=== PATIENT | male | born 1990 ===

== ENCOUNTER 2018-01-18 14:33 | Inpatient (IN) | payer OTHER ==
[2018-01-18] MEDS ORDERED: Sodium Chloride 0.9% 1,000 ML IV SCH (15:15)
[2018-01-18 15:45] LABS: BASO % 0.1 % (0.0-2.0); HEMOGLOBIN 15.1 g/dL (12.0-18.0); LYMPH # 0.5 K/uL (1.0-4.3); LYMPH % 3.4 % (20.0-40.0); MEAN CELL VOLUME 89.3 fl (80.0-94.0); MEAN CORPUSCULAR HEMOGLOBIN 31.6 pg (27.0-31.0); MEAN CORPUSCULAR HGB CONC 35.4 g/dL (33.0-37.0); MEAN PLATELET VOLUME 7.4 fl (7.2-11.7); MONO # 0.5 K/uL (0.0-0.8); MONO % 3.4 % (0.0-10.0); NEUT # 14.5 K/uL (1.8-7.0); NEUT % 93.1 % (50.0-75.0); PLATELET COUNT 166 K/uL (130-400); RBC 4.78 Mil/uL (4.40-5.90); RED CELL DISTRIBUTION WIDTH 13.1 % (11.5-14.5); WHITE BLOOD COUNT 15.6 K/uL (4.8-10.8)
[2018-01-18] MEDS ORDERED: Iohexol 300 100 ML IJ ONE (16:11)
[2018-01-18] MEDS ORDERED: Sodium Chloride 0.9% 100 ML ONE (16:12)
[2018-01-18 16:15] LABS: SQUAMOUS EPITHIAL 1 /hpf (0-5); URINE BACTERIA RARE (<OCC); URINE BILIRUBIN NEGATIVE (NEGATIVE); URINE BLOOD NEGATIVE (NEGATIVE); URINE CLARITY SLIGHTY-CLOUDY (Clear); URINE COLOR YELLOW (YELLOW); URINE GLUCOSE (UA) NEG (Normal); URINE LEUKOCYTE ESTERASE NEG Leu/uL (Negative); URINE PROTEIN 100 mg/dL (NEGATIVE); URINE UROBILINOGEN 0.2-1.0 mg/dL (0.2-1.0)
[2018-01-18 16:23] LABS: ALB/GLOB RATIO 1.2 (1.0-2.1); ALT/SGPT 56 U/L (21-72); AST/SGOT 45 U/L (17-59); BILIRUBIN,DIRECT 0.3 mg/ml (0.0-0.4); BLOOD UREA NITROGEN 14 mg/dl (9-20); CALCIUM 8.8 mg/dL (8.4-10.2); GFR AFRICAN-AMERICAN > 60; GFR NON-AFRICAN AMERICAN > 60; LIPASE 29 U/L (23-300)
--- NOTE | 2018-01-18 16:56 | ED PDOC ---
HPI: Abdomen Time Seen by Provider: 01/18/18 14:55 Chief Complaint (Nursing): Abdominal Pain Chief Complaint (Provider): abdominal pain with diarrhea History Per: Patient, Family History/Exam Limitations: no limitations Onset/Duration Of Symptoms: Days (2) Outside of [place] travel?: No Past Medical History Vital Signs: Last Vital Signs Temp 99.2 F 01/18/18 19:48 Pulse 91 H 01/18/18 19:48 Resp 16 01/18/18 19:48 BP 100/45 L 01/18/18 19:48 Pulse Ox 100 01/18/18 19:48 - Family History Family History: States: No Known Family Hx - Home Medications Home Medications: Ambulatory Orders Medication Instructions Recorded No Known Home Med 01/18/18 - Allergies Allergies/Adverse Reactions: Allergies Allergy/AdvReac Type Severity Reaction Status Date / Time No Known Allergies Allergy Verified 01/18/18 14:38 Review of Systems ROS Statement: Except As Marked, All Systems Reviewed And Found Negative Gastrointestinal: Positive for: Nausea, Abdominal Pain, Diarrhea Physical Exam - Reviewed Nursing Documentation Reviewed: Yes Vital Signs Reviewed: Yes - Physical Exam Appears: Positive for: Well, Non-toxic, No Acute Distress Head Exam: Positive for: ATRAUMATIC, NORMAL INSPECTION, NORMOCEPHALIC Neck: Positive for: Normal, Painless ROM, Supple Cardiovascular/Chest: Positive for: Regular Rate, Rhythm, Chest Non Tender. Negative for: Edema, Gallop, Bradycardia, Tachycardia, Friction Rub Respiratory: Positive for: Normal Breath Sounds. Negative for: Accessory Muscle Use, Crackles, Rales, Rhonchi, Stridor, Wheezing, Respiratory Distress Pulses-Carotid (L): 2+ Pulses-Carotid (R): 2+ Pulses-Radial (L): 2+ Pulses-Radial (R): 2+ Gastrointestinal/Abdominal: Positive for: Bowel Sounds, Soft, Tenderness, Organomegaly (liver enlarged). Negative for: Mass, Distended, Guarding, Rebound , Asicites - Laboratory Results Result Diagrams: 01/18/18 15:39 01/18/18 15:39 - ECG O2 Sat by Pulse Oximetry: 98 Medical Decision Making Medical Decision Making: R/O infectious cause of diarhhea and abdominal pain PLAN: CT Abdomen and Pelvis CBC and CMP with lipase CT RESULTS: This CT exam was performed using one or more of the following dose reduction techniques: Automated exposure control, adjustment of the mA and/or kV according to patient size, and/or use of iterative reconstruction technique. FINDINGS: LOWER THORAX: Trace bilateral basilar dependent atelectasis identified. LIVER: Diminished attenuation throughout the liver indicates diffuse fatty infiltration. No focal mass or biliary tree dilatation appreciable. Liver appears upper limits normal size. GALLBLADDER AND BILE DUCTS: Gallbladder is mildly distended and otherwise appears unremarkable. PANCREAS: Unremarkable. No gross lesion or ductal dilatation. SPLEEN: Unremarkable. ADRENALS: Unremarkable. No mass. KIDNEYS AND URETERS: Tiny lucency seen the upper pole right kidney too small to characterize with the kidneys otherwise unremarkable bilaterally. VASCULATURE: Unremarkable. No aortic aneurysm. BOWEL: There is marked thickening of ascending colon which is less prominent but also affects the transverse and descending segments the sigmoid minimally affected. The rectum appears unaffected but is obscured by retained stool. Minimal local pericolic reaction is identified. Limited retained fluid and stool is seen in various large-bowel segments distal to the ascending colon. None is seen the ascending colon. Consider infectious or inflammatory causes of essentially pancolitis. No bowel obstruction is identified and the stomach is only minimally distended with retained fluid and air. APPENDIX: Normal appendix. PERITONEUM: Unremarkable. No free fluid. No free air. LYMPH NODES: Unremarkable. No enlarged lymph nodes. BLADDER: Unremarkable. REPRODUCTIVE: Unremarkable. BONES: A minimal anterior wedge compression fracture of T12 is in question, of indeterminate age. A small bone island is seen superior to the left acetabulum , left hip joint. OTHER FINDINGS: None. IMPRESSION: Findings most compatible with essentially pancolitis worst affected segment. Infectious and inflammatory causes should be considered and are favored based on the current CT more than ischemic etiologies. Neoplasm is not favored but is including the different diagnosis as well. No ascites. Only trace pericolic reaction is occasionally encountered related to these findings. Hepatic steatosis. Minimal T12 compression fracture questioned, of indeterminate age. ED decison to admit for IV abx and bowel rest made after dis Disposition - Clinical Impression Clinical Impression: Pancolitis, Nonalcoholic hepatosteatosis - Patient ED Disposition Is Patient to be Admitted: Yes Discussed With : Viraj Echeverria Comment: Admitted to FP - Disposition Disposition Time: 19:50 Condition: GOOD
[2018-01-18 18:00] LABS: BANDS 5 % (0-2); HYPOCHROMIC SLIGHT; LYMPHOCYTE 5 % (20-50); MONOCYTE 4 % (0-10); NEUTROPHIL 86 % (42-75); PLATELET ESTIMATE NORMAL (NORMAL); TOTAL CELLS COUNTED 100
--- NOTE | 2018-01-18 18:07 | CT ---
PROCEDURE: CT Abdomen and Pelvis with contrast HISTORY: r/o acute abdomen COMPARISON: None. TECHNIQUE: Contrast dose: Omnipaque 320, 95 cc Radiation dose: Total exam DLP = 651.76 mGy-cm. This CT exam was performed using one or more of the following dose reduction techniques: Automated exposure control, adjustment of the mA and/or kV according to patient size, and/or use of iterative reconstruction technique. FINDINGS: LOWER THORAX: Trace bilateral basilar dependent atelectasis identified. LIVER: Diminished attenuation throughout the liver indicates diffuse fatty infiltration. No focal mass or biliary tree dilatation appreciable. Liver appears upper limits normal size. GALLBLADDER AND BILE DUCTS: Gallbladder is mildly distended and otherwise appears unremarkable. PANCREAS: Unremarkable. No gross lesion or ductal dilatation. SPLEEN: Unremarkable. ADRENALS: Unremarkable. No mass. KIDNEYS AND URETERS: Tiny lucency seen the upper pole right kidney too small to characterize with the kidneys otherwise unremarkable bilaterally. VASCULATURE: Unremarkable. No aortic aneurysm. BOWEL: There is marked thickening of ascending colon which is less prominent but also affects the transverse and descending segments the sigmoid minimally affected. The rectum appears unaffected but is obscured by retained stool. Minimal local pericolic reaction is identified. Limited retained fluid and stool is seen in various large-bowel segments distal to the ascending colon. None is seen the ascending colon. Consider infectious or inflammatory causes of essentially pancolitis. No bowel obstruction is identified and the stomach is only minimally distended with retained fluid and air. APPENDIX: Normal appendix. PERITONEUM: Unremarkable. No free fluid. No free air. LYMPH NODES: Unremarkable. No enlarged lymph nodes. BLADDER: Unremarkable. REPRODUCTIVE: Unremarkable. BONES: A minimal anterior wedge compression fracture of T12 is in question, of indeterminate age. A small bone island is seen superior to the left acetabulum, left hip joint. OTHER FINDINGS: None. IMPRESSION: Findings most compatible with essentially pancolitis worst affected segment. Infectious and inflammatory causes should be considered and are favored based on the current CT more than ischemic etiologies. Neoplasm is not favored but is including the different diagnosis as well. No ascites. Only trace pericolic reaction is occasionally encountered related to these findings. Hepatic steatosis. Minimal T12 compression fracture questioned, of indeterminate age.
[2018-01-18] MEDS ORDERED: Ciprofloxacin 400mg/200ml D5W 400 MG/200 ML BAG IVPB STA (19:22)
[2018-01-18] MEDS ORDERED: METRONIDAZOLE 500 MG/100 ML IVPB SCH (19:30)
[2018-01-18] MEDS ORDERED: NS IVPB SCH (19:30)
[2018-01-18] MEDS ORDERED: Potassium Chloride 20 mEq ER Tab PO ONE ×2 (19:48→20:18)
[2018-01-18] MEDS ORDERED: Ciprofloxacin 400mg/200ml D5W 400 MG/200 ML BAG IVPB ONE (19:50)
[2018-01-18] MEDS: Lactated Ringer's 1,000 ML IV SCH (19:57)
--- NOTE | 2018-01-18 20:43 | CP.PCM.HP ---
History of Present Illness - History of Present Illness History of Present Illness: 27 year old male with no past medical history presented to ED with complaints of abdominal pain, diarrhea, body aches and subjective fevers that began last night. He had about 4 episodes of non-bloody liquid stools with associated abdominal cramping and pain, no nausea or vomiting. He has loss of appetite but has been drinking water. He denies chills or night sweats, did not take his temperature. He denies any sick contacts, no recent travel. He denies any URI symptoms, no rhinorrhea, headache/fullness, or cough. No urinary symptoms. He is from [facility]. He works in construction. Last saw a doctor in the summer of 2016, contact with [facility] jacqueline. PMD: none PMH: denies Medications: none Allergies: NDKA Surgical Hx: denies Family Hx: mother has 'stomach problems' Social : denies tobacco, etoh or illicit drug use. Present on Admission - Present on Admission Any Indicators Present on Admission: No Review of Systems - Constitutional Constitutional: Anorexia, Fever (subjective). absent: Chills, Malaise, Weight Loss, Weakness - EENT Eyes: absent: Blurred Vision, Change in Vision Nose/Mouth/Throat: absent: Nasal Congestion, Nasal Discharge, Nose Pain - Cardiovascular Cardiovascular: absent: Chest Pain, Dyspnea, Edema, Syncope - Respiratory Respiratory: absent: Cough, Dyspnea, Chest Congestion - Gastrointestinal Gastrointestinal: Abdominal Pain (periumbilical), Change in Stool Character ( liquid stools), Cramping, Diarrhea. absent: Dysphagia, Heartburn, Nausea, Vomiting - Genitourinary Genitourinary: absent: Change in Urinary Stream, Dysuria, Hematuria, Urinary Urgency - Musculoskeletal Musculoskeletal: Myalgias - Neurological Neurological: absent: Dizziness, Numbness, Tremor Past Patient History - Past Social History Smoking Status: Never Smoked - PSYCHIATRIC Hx Substance Use: No - SURGICAL HISTORY Hx Surgeries: No Meds Allergies/Adverse Reactions: Allergies Allergy/AdvReac Type Severity Reaction Status Date / Time No Known Allergies Allergy Verified 01/18/18 14:38 Physical Exam - Constitutional Appears: Non-toxic, No Acute Distress - Head Exam Head Exam: ATRAUMATIC, NORMAL INSPECTION, NORMOCEPHALIC - Eye Exam Eye Exam: EOMI, Normal appearance, PERRL - Respiratory Exam Respiratory Exam: Clear to Auscultation Bilateral, NORMAL BREATHING PATTERN. absent: Decreased Breath Sounds, Rales, Rhonchi, Wheezes, Respiratory Distress - Cardiovascular Exam Cardiovascular Exam: Tachycardia (hr 100s), REGULAR RHYTHM, +S1, +S2. absent: Bradycardia, Diastolic murmur, Systolic Murmur - GI/Abdominal Exam GI & Abdominal Exam: Diminished Bowel Sounds, Soft, Tenderness (mild diffuse). absent: Distended, Guarding, Rebound, Rigid - Rectal Exam Rectal Exam: Deferred - Extremities Exam Extremities exam: Positive for: normal inspection. Negative for: pedal edema - Neurological Exam Neurological exam: Alert, CN II-XII Intact, Oriented x3 - Skin Skin Exam: Dry, Intact, Normal Color, Warm Results - Vital Signs Recent Vital Signs: Last Vital Signs Temp 99.2 F 01/18/18 20:24 Pulse 91 H 01/18/18 20:24 Resp 16 01/18/18 20:24 BP 100/45 L 01/18/18 20:24 Pulse Ox 98 01/18/18 19:50 - Labs Result Diagrams: 01/18/18 15:39 01/18/18 15:39 Labs: Laboratory Results - last 24 hr 01/18/18 01/18/18 01/18/18 15:39 15:39 15:39 WBC 15.6 H RBC 4.78 Hgb 15.1 Hct 42.7 MCV 89.3 MCH 31.6 H MCHC 35.4 RDW 13.1 Plt Count 166 MPV 7.4 Neut % (Auto) 93.1 H Lymph % (Auto) 3.4 L [place] % (Auto) 3.4 Eos % (Auto) 0.0 Baso % (Auto) 0.1 Neut # (Auto) 14.5 H Lymph # (Auto) 0.5 L [place] # (Auto) 0.5 Eos # (Auto) 0.0 Baso # (Auto) 0.0 Neutrophils % (Manual) 86 H Band Neutrophils % 5 H Lymphocytes % (Manual) 5 L Monocytes % (Manual) 4 Platelet Estimate Normal Hypochromasia (manual) Slight Sodium 138 Potassium 3.1 L Chloride 101 Carbon Dioxide 21 L Anion Gap 19 BUN 14 Creatinine 0.8 Est GFR ( Amer) > 60 Est GFR (Non-Af Amer) > 60 Random Glucose 111 H Calcium 8.8 Total Bilirubin 1.2 Direct Bilirubin 0.3 AST 45 ALT 56 Alkaline Phosphatase 62 Total Protein 7.2 Albumin 4.0 Globulin 3.2 Albumin/Globulin Ratio 1.2 Lipase 29 Urine Color Yellow Urine Clarity Slighty-cloudy Urine pH 6.0 Ur Specific [place] 1.030 Urine Protein 100 Urine Glucose (UA) Neg Urine Ketones 20 Urine Blood Negative Urine Nitrate Negative Urine Bilirubin Negative Urine Urobilinogen 0.2-1.0 Ur Leukocyte Esterase Neg Urine RBC (Auto) 3 Urine Microscopic WBC 3 Ur Squamous Epith Cells 1 Urine Bacteria Rare Assessment & Plan (1) Pancolitis Assessment and Plan: 27 year old male admitted for pancolitis and hypokalemia. Hypokalemia likely secondary to diarrhea, will replete with kdur. He has some appetite now, will start liquid diet and advance as tolerated. Started on Cipro/Flagyl for colitis. Will start IVF with LR and d/c once pt is tolerating diet. Monitor vitals Status: Acute (2) Nonalcoholic hepatosteatosis Assessment and Plan: no hx of etoh use, seen on ct a/p. LFTs are within normal limits. outpatient mangement- weight loss Status: Chronic (3) DVT prophylaxis Assessment and Plan: scds/lovenox Status: Acute
[2018-01-19] MEDS: Lactated Ringer's 1,000 ML IV SCH ×2 (03:58→09:20)
--- NOTE | 2018-01-19 06:42 | CP.PCM.PN ---
Subjective - Date & Time of Evaluation Date of Evaluation: 01/19/18 Time of Evaluation: 08:10 - Subjective Subjective: Pt seen and evaluated at bedside; states he feels a little bit better. Relates that he came into ED last night with abdominal pain and diarrhea that started the day before. Has not had episode of diarrhea since around 3-4 am. Denies chest pain, palpitations, nausea, vomiting, muscle cramps, leg/calf pain. Objective - Vital Signs/Intake and Output Vital Signs (last 24 hours): Temp Pulse Resp BP Pulse Ox 98.6 F 79 20 105/65 98 01/18/18 23:25 01/18/18 23:25 01/18/18 23:25 01/18/18 23:25 01/18/18 23:25 - Medications Medications: Current Medications Enoxaparin Sodium (Lovenox) 40 mg SC DAILY [facility] PRN Reason: Protocol Metronidazole (Flagyl 500mg/100ml Ns) 200 mls @ 100 mls/hr IVPB ONCE HAYES PRN Reason: Protocol Lactated Ringer's (Lactated Ringer's) 1,000 mls @ 150 mls/hr IV .[id number] HAYES Last Admin: 01/19/18 03:58 Dose: 150 mls/hr Ketorolac Tromethamine (Toradol) 30 mg IVP Q6 PRN PRN Reason: Pain, moderate (4-7) Last Admin: 01/19/18 05:40 Dose: 30 mg - Labs Labs: 01/18/18 15:39 01/18/18 15:39 - Constitutional Appears: Non-toxic, No Acute Distress - Head Exam Head Exam: NORMAL INSPECTION - Eye Exam Eye Exam: EOMI, Normal appearance - ENT Exam ENT Exam: Mucous Membranes Moist - Respiratory Exam Respiratory Exam: Clear to Ausculation Bilateral, NORMAL BREATHING PATTERN - Cardiovascular Exam Cardiovascular Exam: REGULAR RHYTHM, +S1, +S2 - GI/Abdominal Exam GI & Abdominal Exam: Soft, Tenderness (mild, diffuse), Normal Bowel Sounds. absent: Distended, Rebound - Extremities Exam Extremities Exam: Normal Inspection. absent: Calf Tenderness, Pedal Edema - Neurological Exam Neurological Exam: Alert, Awake - Skin Skin Exam: Dry, Normal Color, Warm Assessment and Plan - Assessment and Plan (Free Text) Assessment: 27 year old male with no significant known medical history admitted for pancolitis and hypokalemia. Plan: # Pancolitis - Cipro 400 mg IV Q12 - Flagyll 500 mg IV Q8 - Advance diet as tolerated - Ketorolac 30mg IVP Q6 PRN # Hypokalemia - s/p 20 mEq Kdur PO - 20mEq IV and 40mEq PO - repeat BMP, K 3.2 - 40mEq in am - Repeat BMP in am # Sepsis, resolved - Presented with septic criteria (elevated HR, leukocytosis); now resolved # Nonalcoholic hepatosteatosis - No hx of EtOH use - Outpatient management with new PMD; scheduled appt at [facility] # DVT Prophylaxis - Lovenox 40 mg SC daily
[2018-01-19 06:49] LABS: BASO % 0.1 % (0.0-2.0); HEMOGLOBIN 14.2 g/dL (12.0-18.0); LYMPH # 0.5 K/uL (1.0-4.3); LYMPH % 5.6 % (20.0-40.0); MEAN CELL VOLUME 89.4 fl (80.0-94.0); MEAN CORPUSCULAR HEMOGLOBIN 31.6 pg (27.0-31.0); MEAN CORPUSCULAR HGB CONC 35.4 g/dL (33.0-37.0); MEAN PLATELET VOLUME 7.6 fl (7.2-11.7); MONO # 0.4 K/uL (0.0-0.8); MONO % 4.7 % (0.0-10.0); NEUT % 89.6 % (50.0-75.0); RBC 4.48 Mil/uL (4.40-5.90); RED CELL DISTRIBUTION WIDTH 12.9 % (11.5-14.5); WHITE BLOOD COUNT 8.9 K/uL (4.8-10.8)
[2018-01-19 07:17] LABS: BLOOD UREA NITROGEN 11 mg/dl (9-20); CALCIUM 8.4 mg/dL (8.4-10.2); GFR AFRICAN-AMERICAN > 60; GFR NON-AFRICAN AMERICAN > 60
[2018-01-19] MEDS ORDERED: NS IVPB ONE (09:00)
[2018-01-19] MEDS ORDERED: METRONIDAZOLE 500 MG/100 ML IVPB ONE (09:00)
[2018-01-19] MEDS: Potassium Chloride 20 mEq 100 ML IVPB SCH ×2 (09:17→09:21)
[2018-01-19] MEDS: Enoxaparin 40 mg Syringe SC SCH (09:18)
--- NOTE | 2018-01-19 09:51 | CARD ---
APPROVED REPORT EKG Measurement Heart [id number] [id number] <Conclusion> Normal sinus rhythm Right axis deviation Incomplete right bundle branch block Possible Right ventricular hypertrophy Abnormal ECG
[2018-01-19] MEDS ORDERED: Potassium Chloride 20 mEq ER Tab PO ONE (11:06)
--- NOTE | 2018-01-19 12:31 | CP.PCM.DIS ---
Provider - Provider Date of Admission: 01/18/18 19:05 Attending physician: Malaika Michelle MD Primary care physician: None Time Spent in preparation of Discharge (in minutes): 35 Diagnosis - Discharge Diagnosis (1) Pancolitis Status: Acute Comment: Pt was admitted with abdominal pain, diarrhea, and CT with findings most compatible with pancolitis; he was hydrated with LR, and he recieved cipro and flagyll. (2) Hypokalemia Status: Resolved Comment: Found to be hypokalemic on BMP. Pt asymptomatic. Repleted with IV and PO potassium. (3) Sepsis Status: Resolved Comment: Pt presented as septic (met criteria of elevated HR to 107, WBC 15.9, and suspeted source colitis). Hydrated with LR, received antibiotics. HR normalized, leukocytosis resolved. Hospital Course - Lab Results Lab Results: Most Recent Lab Values WBC 8.9 K/uL (4.8-10.8) 01/19/18 05:50 RBC 4.48 Mil/uL (4.40-5.90) 01/19/18 05:50 Hgb 14.2 g/dL (12.0-18.0) 01/19/18 05:50 Hct 40.1 % (35.0-51.0) 01/19/18 05:50 MCV 89.4 fl (80.0-94.0) 01/19/18 05:50 MCH 31.6 pg (27.0-31.0) H 01/19/18 05:50 MCHC 35.4 g/dL (33.0-37.0) 01/19/18 05:50 RDW 12.9 % (11.5-14.5) 01/19/18 05:50 Plt Count 162 K/uL (130-400) 01/19/18 05:50 MPV 7.6 fl (7.2-11.7) 01/19/18 05:50 Neut % (Auto) 89.6 % (50.0-75.0) H 01/19/18 05:50 Lymph % (Auto) 5.6 % (20.0-40.0) L 01/19/18 05:50 [place] % (Auto) 4.7 % (0.0-10.0) 01/19/18 05:50 Eos % (Auto) 0.0 % (0.0-4.0) 01/19/18 05:50 Baso % (Auto) 0.1 % (0.0-2.0) 01/19/18 05:50 Neut # (Auto) 8.0 K/uL (1.8-7.0) H 01/19/18 05:50 Lymph # (Auto) 0.5 K/uL (1.0-4.3) L 01/19/18 05:50 [place] # (Auto) 0.4 K/uL (0.0-0.8) 01/19/18 05:50 Eos # (Auto) 0.0 K/uL (0.0-0.7) 01/19/18 05:50 Baso # (Auto) 0.0 K/uL (0.0-0.2) 01/19/18 05:50 Neutrophils % (Manual) 86 % (42-75) H 01/18/18 15:39 Band Neutrophils % 5 % (0-2) H 01/18/18 15:39 Lymphocytes % (Manual) 5 % (20-50) L 01/18/18 15:39 Monocytes % (Manual) 4 % (0-10) 01/18/18 15:39 Platelet Estimate Normal (NORMAL) 01/18/18 15:39 Hypochromasia (manual) Slight 01/18/18 15:39 Sodium 138 mmol/l (132-148) 01/19/18 05:50 Potassium 2.8 MMOL/L (3.6-5.0) L 01/19/18 05:50 Chloride 102 mmol/L (98-107) 01/19/18 05:50 Carbon Dioxide 24 mmol/L (22-30) 01/19/18 05:50 Anion Gap 15 (10-20) 01/19/18 05:50 BUN 11 mg/dl (9-20) 01/19/18 05:50 Creatinine 0.9 mg/dl (0.8-1.5) 01/19/18 05:50 Est GFR ( Amer) > 60 01/19/18 05:50 Est GFR (Non-Af Amer) > 60 01/19/18 05:50 Random Glucose 113 mg/dL (75-110) H 01/19/18 05:50 Calcium 8.4 mg/dL (8.4-10.2) 01/19/18 05:50 Magnesium 1.9 MG/DL (1.6-2.3) 01/19/18 05:50 Total Bilirubin 1.2 mg/dl (0.2-1.3) 01/18/18 15:39 Direct Bilirubin 0.3 mg/ml (0.0-0.4) 01/18/18 15:39 AST 45 U/L (17-59) 01/18/18 15:39 ALT 56 U/L (21-72) 01/18/18 15:39 Alkaline Phosphatase 62 U/L (38-126) 01/18/18 15:39 Total Protein 7.2 G/DL (6.3-8.2) 01/18/18 15:39 Albumin 4.0 g/dL (3.5-5.0) 01/18/18 15:39 Globulin 3.2 gm/dL (2.2-3.9) 01/18/18 15:39 Albumin/Globulin Ratio 1.2 (1.0-2.1) 01/18/18 15:39 Lipase 29 U/L (23-300) 01/18/18 15:39 Urine Color Yellow (YELLOW) 01/18/18 15:39 Urine Clarity Slighty-cloudy (Clear) 01/18/18 15:39 Urine pH 6.0 (5.0-8.0) 01/18/18 15:39 Ur Specific [place] 1.030 (1.003-1.030) 01/18/18 15:39 Urine Protein 100 mg/dL (NEGATIVE) 01/18/18 15:39 Urine Glucose (UA) Neg mg/dL (Normal) 01/18/18 15:39 Urine Ketones 20 mg/dL (NEGATIVE) 01/18/18 15:39 Urine Blood Negative (NEGATIVE) 01/18/18 15:39 Urine Nitrate Negative (NEGATIVE) 01/18/18 15:39 Urine Bilirubin Negative (NEGATIVE) 01/18/18 15:39 Urine Urobilinogen 0.2-1.0 mg/dL (0.2-1.0) 01/18/18 15:39 Ur Leukocyte Esterase Neg [place]/uL (Negative) 01/18/18 15:39 Urine RBC (Auto) 3 /hpf (0-3) 01/18/18 15:39 Urine Microscopic WBC 3 /hpf (0-5) 01/18/18 15:39 Ur Squamous Epith Cells 1 /hpf (0-5) 01/18/18 15:39 Urine Bacteria Rare (<OCC) 01/18/18 15:39 - Hospital Course Hospital Course: PT DISCHARGED ON 01/20/2018 Pt was admitted with sepsis (met criteria of elevated HR to 107, WBC 15.9, and suspected source colitis), abdominal pain, diarrhea, and CT with findings most compatible with pancolitis. He was hydrated with LR, and he received ciprofloxacin and flagyll. Found to be hypokalemic on BMP. Repleted with IV and PO potassium. Tolerated liquid and then regular diet. Pt was expected to be discharged yesterday, but after drafting this document, pt had 1 episode of bloody diarrhea and his potassium was still decreased. Overnight, he did not have any more bloody diarrhea, his potassium this morning was improved, and he tolerated regular diet. Pt does not have a PMD; set up with appointment at [facility]. Stressed importance of attending this appointment. Prescriptions for cipro and flagyll for 7 days were sent to pt's preferred pharmacy; pt warned to avoid alcohol with use of these medications, adverse effects discussed. Discharge Exam - Head Exam Head Exam: NORMAL INSPECTION - Eye Exam Eye Exam: EOMI, Normal appearance - ENT Exam ENT Exam: Mucous Membranes Moist - Respiratory Exam Respiratory Exam: Clear to PA & Lateral, NORMAL BREATHING PATTERN, UNREMARKABLE - Cardiovascular Exam Cardiovascular Exam: REGULAR RHYTHM, +S1, +S2 - GI/Abdominal Exam GI & Abdominal Exam: Normal Bowel Sounds, Soft, Unremarkable. absent: Rebound, Rigid - Extremities Exam Extremities exam: normal inspection Additional comments: no calf tenderness - Back Exam Back exam: NORMAL INSPECTION - Neurological Exam Neurological exam: Alert - Psychiatric Exam Psychiatric exam: Normal Mood - Skin Skin Exam: Dry, Normal Color, Warm Discharge Plan - Discharge Medications Prescriptions: Ciprofloxacin [Cipro] 500 mg PO Q12 #14 tab Metronidazole [Flagyl] 500 mg PO Q8 #24 tablet - Follow Up Plan Condition: STABLE Disposition: HOME/ ROUTINE Patient education suggested?: Yes Instructions: Inflammatory Bowel Disease (DC) Additional Instructions: Please take antibiotics as prescribed. Return to ED if symptoms return, worsen. Please come to appointment at [facility] as scheduled. Referrals: [facility] [Outside] - 01/25/18 3:20 pm (Please arrive at 2: 50 pm.)
[2018-01-19 13:46] LABS: BLOOD UREA NITROGEN 10 mg/dl (9-20); CALCIUM 8.3 mg/dL (8.4-10.2); GFR AFRICAN-AMERICAN > 60; GFR NON-AFRICAN AMERICAN > 60
[2018-01-19] MEDS: Ciprofloxacin 400mg/200ml D5W 400 MG/200 ML BAG IVPB SCH ×2 (13:50→21:30)
[2018-01-19 15:55] VITALS: RESP 20
[2018-01-19] MEDS: metroNIDAZOLE 500mg/100ml NS 100 ML IVPB SCH (16:52)
[2018-01-20 00:08] VITALS: TEMP 98.4
[2018-01-20] MEDS: metroNIDAZOLE 500mg/100ml NS 100 ML IVPB SCH ×2 (00:15→09:17)
[2018-01-20 07:23] LABS: HEMOGLOBIN 14.2 g/dL (12.0-18.0); MEAN CELL VOLUME 89.6 fl (80.0-94.0); MEAN CORPUSCULAR HEMOGLOBIN 31.1 pg (27.0-31.0); MEAN CORPUSCULAR HGB CONC 34.7 g/dL (33.0-37.0); RBC 4.55 Mil/uL (4.40-5.90); RED CELL DISTRIBUTION WIDTH 13.1 % (11.5-14.5); WHITE BLOOD COUNT 5.3 K/uL (4.8-10.8)
[2018-01-20 07:37] LABS: BLOOD UREA NITROGEN 10 mg/dl (9-20); CALCIUM 8.5 mg/dL (8.4-10.2); GFR AFRICAN-AMERICAN > 60; GFR NON-AFRICAN AMERICAN > 60
[2018-01-20 08:13] VITALS: BP 99/59; PULSE 68; O2SAT 98
[2018-01-20] MEDS ORDERED: Potassium Chloride 20 mEq ER Tab PO ONE (09:00)
[2018-01-20] MEDS: Enoxaparin 40 mg Syringe SC SCH (09:18)
[2018-01-20] MEDS: Ciprofloxacin 400mg/200ml D5W 400 MG/200 ML BAG IVPB SCH (10:44)
== END 2018-01-20 13:31 | disposition home or self-care (01) | DRG 179 ==
LOC: H.ER 14:33 → H.ERHOLD 19:05 → H.MEDSURG1 20:30 → OBSVTOIN 01-19 14:10
PROVIDERS: ADMIT Family Medicine Geriatric Medicine; ATTEND Family Medicine Geriatric Medicine
DX: K51.00 Ulcerative (chronic) pancolitis without complications (principal); K76.89 Other specified diseases of liver; E87.6 Hypokalemia; K52.9 Noninfective gastroenteritis and colitis, unspecified